=== PATIENT | female | born 1985 | race Caucasian/White ===

== ENCOUNTER 2016-11-01 12:01 | Emergency (ER) | payer OTHER ==
[~2016-11-01] VITALS: Ht 154.9 cm; Wt 77.1 kg
[~2016-11-01 12:01] MED LIST: ARIPIPRAZOLE2 MG PO; FLUOXETINE HCL40 M1 PO; NUVARING VAGIN1 EACH VG
--- NOTE | 2016-11-01 12:57 | ED INFLUENZA/URI COMPLAINT ---
History of Present Illness General Chief Complaint: General Adult Stated Complaint: URI/ELAVATED BP Source: patient, old records Exam Limitations: no limitations Vital Signs & Intake/Output Vital Signs & Intake/Output Vital Signs Date Time Temp Pulse Resp B/P Pulse O2 O2 Flow FiO2 Ox Delivery Rate 11/01 1324 98.1 74 18 132/80 98 Room Air 11/01 1207 96.7 89 16 146/85 99 Room Air Allergies Coded Allergies: NO KNOWN ALLERGIES (06/15/12) Reconcile Medications Aripiprazole 2 MG TABLET 1 TAB PO DAILY MENTAL HEALTH (Reported) Azithromycin 250 MG TABLET 1 DP PO AD uri 2 the first day followed by 1 for days 2-5 Clonazepam 0.5 MG TABLET 1 TAB PO BIDP PRN ANXIETY (Reported) Etonogestrel/Ethinyl Estradiol (Nuvaring Vaginal Ring) 1 EACH VAG.RING 1 EACH VG Q30D CONTROL (Reported) use for 3 weeks, skip for 1 week Fluoxetine HCl 40 MG CAPSULE 1 CAP PO DAILY MENTAL HEALTH (Reported) Trazodone HCl 100 MG TABLET 1 TAB PO QPM SLEEP (Reported) Venlafaxine HCl (Venlafaxine HCl ER) 75 MG CAP.ER.24H 1 CAP PO DAILY MENTAL HEALTH (Reported) Triage Note: 31 Y/O FEMALE C/O "NOT FEELING WELL" X 2 DAYS; STATES SHE WENT TO WALK IN AND HER B/P WAS ELEVATED; ALSO CHECKED IT AT [employer] AND NOTICED IT WAS 146/102. PT STATES SHE HAS HAD URI SYMPTOMS X 2 DAYS WITH COUGH. AFEBRILE. Triage Nurses Notes Reviewed? yes Onset: Gradual Duration: day(s): (2), constant Timing: recent history Severity: mild Severity Numbers: 4 Prior Episodes/Possible Cause: occassional episodes No Modifying Factors: none Associated Symptoms: cough, nasal congestion, nasal drainage : No Patient currently breastfeeds: No HPI: 31-year-old female presents emergency room complaining of a nonproductive cough associated with rhinorrhea congestion for the past 2 days. Patient states that 3 days ago she woke up and vomited 1. She states for the past few days she has not been feeling well. She denies any abdominal pain nausea there's been no further episodes of vomiting no diarrhea. She is not taken anything for her symptoms. She went to an urgent care yesterday and was prescribed Tessalon for her cough. She was informed that her blood pressure was elevated there. When she went in with the prescription filled today she checked it at the grocery store and it remained elevated 146/102. There is no headache vision changes chest pain abdominal pain. No history of hypertension in the past. (DARRICK SOSA) Past History Travel History Traveled to [place] past 21 day No Medical History Any Pertinent Medical History? 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 No (DARRICK SOSA) Review of Systems Review of Systems Constitutional: Reports: see HPI. All Other Systems: Reviewed and Negative Comments Review of systems: See HPI, All other systems negative. Constitutional, no chills no fever, no malaise HEENT: no sore throat congestion, no ear pain Cardiovascular: No chest pain , no palpitation , no orthopnea Skin, no rashes, no change in skin Respiratory: No dyspnea cough no sputum GI: No nausea no vomiting, no diarrhea, : No dysuria No hematuria, Muscle skeletal: No joint pain,, no back pain, no neck pain, Neurologic: No numbness no headache Psych: No stress Heme/endocrine: No bruising no bleeding Immunology: No lymphadenopathy (DARRICK SOSA) Physical Exam Physical Exam General Appearance: well developed/nourished, no apparent distress, alert, awake , comfortable Ears, Nose, Throat: normal ENT inspection, moist mucous membrane, hearing grossly normal, Tympanic normal, nasal congestion Comments: Well-developed well-nourished patient in no apparent distress. Head/Face: Atraumatic, no maxillary/frontal sinus tenderness, no facial swelling Eyes: PERRL, EOMI, no conjunctival injection. No nystagmus Ear:External auditory canal and Tympanic membranes clear, no erythema, no FB. Nose: atraumatic.Normal inspection: No bleeding, no septal hematoma Throat: Moist mucous membranes.Pharynx normal. No pharyngeal erythema/exudate seen. No stridor/drooling or assymetry. No swelling or edema. Neck: Supple, no lymphadenopathy, FROM Back: FROM, Nontender Cardiovascular: Regular rate and rhythms no murmurs rubs or gallops, Respiratory: Chest nontender.There were no bony deformities, no asymmetry. No respiratory distress. Patient speaking in full complete sentences. Breath sounds clear to auscultation bilaterally: NO W/R/R Extremities: full range of motion Neuro: Alert and oriented x3 Skin: Warm & dry;No appreciable rash on exposed skin Psych: Mood affect normal, normal memory normal judgment. Core Measures Severe Sepsis Present: No Septic Shock Present: No (DARRICK SOSA) Progress Differential Diagnosis: influenza, otitis, pneumonia, pharyngitis, sinusitis, HYPERTENSIVE URGENCY VERSUS EMERGENCY Plan of Care: Orders Procedure Date/time Status RAPID VIRAL INFLUENZA A 11/01 1307 Complete Microbiology 11/01 1315 NASOPHARYN: Influenza Virus A & B Rapid Smear - COMP Labs ordered, patient resting in no apparent distress, repeat blood pressure manually 132/80 patient denies any other symptoms at this time. Discussed with patient her. Results E for supportive care and close follow-up with her primary care physician regarding her blood pressure I advised that she continue to check her blood pressures at home if they are persistently elevated to return to ER she was educated on dietary control limiting salt intake, high but she return anytime sooner if any concerns answered all her questions quick for discharge (DARRICK SOSA) Initial ED EKG: none (DARRICK SOSA) Departure Departure Time of Disposition: 1340 Disposition: HOME OR SELF CARE Condition: Stable Clinical Impression Primary Impression: URI (upper respiratory infection) Referrals: LUISITO FERREIRA,DANA Kilgore (PCP/Family) Additional Instructions: AZITHROMYCIN DIRECTED. DISCUSSED CONTINUE TO CHECK YOUR BLOOD PRESSURES AT HOME AND FOLLOW UP WITH YOUR PMD DR JORGE THIS WEEK FOR REPEAT EVAL. LIMIT CAFFEINE AND SALT INTAKE, RETURN IMMEDIATELY IF YOUR BLOOD PRESSURS ARE PERSISTENTLY ELEVATED OR YOU HAVE ANY OTHER CONCERNS. TAKE THE TESSALON PERLES THAT WERE PREVIOUSLY PRESCRIBED TO YOU FOR YOUR COUGH. Departure Forms: Customer Survey General Discharge Information Prescriptions: Current Visit Scripts Azithromycin 1 DP PO AD #6 TAB 2 the first day followed by 1 for days 2-5 (DARRICK SOSA) PA/SPUDDER Co-Sign Statement Statement: ED Attending supervision documentation- [] I saw and evaluated the patient. I have also reviewed all the pertinent lab results and diagnostic results. I agree with the findings and the plan of care as documented in the PA's/SPUDDER's documentation. x I have reviewed the ED Record and agree with the PA's/SPUDDER's documentation. [] Additions or exceptions (if any) to the PAs/SPUDDER's note and plan are summarized below: [] (JIGNESH FERREIRA,ADAM)
[2016-11-01 13:24] VITALS: BP 132/80
[2016-11-01] MEDS ORDERED: VENLAFAXINE HCL75 M1 PO (13:54)
[2016-11-01] MEDS ORDERED: TRAZODONE HCL100 M1 PO (13:55)
[2016-11-01] MEDS ORDERED: CLONAZEPAM0.5 M2 PO (13:55)
[2016-11-01] MEDS ORDERED: AZITHROMYCIN250 M1 PO (13:58)
== END 2016-11-01 14:02 ==
LOC: ERH 12:01
DX: J06.9 Acute upper respiratory infection, unspecified (principal); Z72.0 Tobacco use
CPT/HCPCS: 87804; 87804-59

== ENCOUNTER 2017-10-23 21:01 | Emergency (ER) | payer OTHER ==
[~2017-10-23] VITALS: Ht 154.9 cm; Wt 80.7 kg
[~2017-10-23 21:01] MED LIST changes: +AZITHROMYCIN250 M1 PO; +CLONAZEPAM0.5 M2 PO; +TRAZODONE HCL100 M1 PO; +VENLAFAXINE HCL75 M1 PO
--- NOTE | 2017-10-24 00:01 | ED GI/GU/ABDOMINAL COMPLAINT ---
History of Present Illness General Chief Complaint: Abdominal Pain/Flank Pain Stated Complaint: RIGHT SIDE ABD PAIN AND FLANK PAIN Source: patient Exam Limitations: no limitations Vital Signs & Intake/Output Vital Signs & Intake/Output Vital Signs Date Time Temp Pulse Resp B/P B/P Pulse O2 O2 Flow FiO2 Mean Ox Delivery Rate 10/238 98.3 78 14 126/83 98 Room Air ED Intake and Output 10/24 0000 10/23 1200 Intake Total Output Total Balance Patient 178 lb Weight Weight Reported by Patient Measurement Method Allergies Coded Allergies: NO KNOWN ALLERGIES (06/15/12) Reconcile Medications Aripiprazole 2 MG TABLET 1 TAB PO DAILY MENTAL HEALTH (Reported) Azithromycin 250 MG TABLET 1 DP PO AD uri 2 the first day followed by 1 for days 2-5 Clonazepam 0.5 MG TABLET 1 TAB PO BIDP PRN ANXIETY (Reported) Etonogestrel/Ethinyl Estradiol (Nuvaring Vaginal Ring) 1 EACH VAG.RING 1 EACH VG Q30D CONTROL (Reported) use for 3 weeks, skip for 1 week Fluoxetine HCl 40 MG CAPSULE 1 CAP PO DAILY MENTAL HEALTH (Reported) Omeprazole Magnesium (Prilosec Otc) 20 MG TABLET.DR 1 TAB PO DAILY stomach burning Ondansetron (Zofran Odt) 4 MG TAB.RAPDIS 1 TAB SL TID PRN nausea, vomiting Trazodone HCl 100 MG TABLET 1 TAB PO QPM SLEEP (Reported) Venlafaxine HCl (Venlafaxine HCl ER) 75 MG CAP.ER.24H 1 CAP PO DAILY MENTAL HEALTH (Reported) Triage Note: PT PRESENTS TO THE ER C/O STOMACH PAIN, PT STATES THAT SHE SAW HER PCP ON SUNDAY AND WAS SCHEDULED FOR AN US ON SUNDAY.. PT STATES TODAY IT GOT WORSE AND PAIN MOVED FROM UPPER ABD TO LOWER AND BILATERAL FLANK PAIN.. 6/10 PAIN PER PT LAST BM THIS AM Triage Nurses Notes Reviewed? yes ? n Is pt currently ? No Onset: Gradual Duration: week(s): Timing: recent history Quality/Severity: cramping Location: generalized abdomen Radiation: no radiation Activities at Onset: none Modifying Factors: Worsens With: palpation, vomiting. Associated Symptoms: abdominal pain, nausea/vomiting HPI: 32 yo woman h/o anxiety/depression, presents with diffuse abdominal pain x 4 weeks. She shares, "My doctor thinks I have a gall bladder problem... I have an u/s scheduled on , but today, the pain seemed to get worse.... " She notes pain in the mid epigastru, right and left lower quadrants. She has mild nausea, vomited today at 3pm. She is otherwise well. Past History Travel History Traveled to [place] past 21 day No Medical History Any Pertinent Medical History? 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 No Review of Systems Review of Systems Constitutional: Reports: no symptoms. EENTM: Reports: no symptoms. Respiratory: Reports: no symptoms. Cardiovascular: Reports: no symptoms. GI: Reports: no symptoms. Genitourinary: Reports: no symptoms. Musculoskeletal: Reports: no symptoms. Skin: Reports: no symptoms. Neurological/Psychological: Reports: no symptoms. Hematologic/Endocrine: Reports: no symptoms. Immunologic/Allergic: Reports: no symptoms. All Other Systems: Reviewed and Negative Physical Exam Physical Exam General Appearance: well developed/nourished, mild distress Head: atraumatic, normal appearance Eyes: Bilateral: normal appearance. Ears, Nose, Throat, Mouth: hearing grossly normal, moist mucous membrane Neck: normal inspection, supple Respiratory: normal breath sounds, chest non-tender, no respiratory distress, quiet respiration, lungs clear Cardiovascular: regular rate/rhythm Gastrointestinal: normal bowel sounds, soft, mild mid epigastric tenderness, mild ruq tenderness, without mattson's sign. mild rlq and llq tenderness to palpation. no rebound. no guarding. Back: normal inspection Extremities: normal range of motion Neurologic/Psych: no motor/sensory deficits, awake, alert, oriented x 3 Skin: intact, normal color, warm/dry Core Measures ACS in differential dx? No Sepsis Present: No Sepsis Focused Exam Completed? No Progress Differential Diagnosis: appendicitis, biliary colic, cholecystitis, diverticulitis, gastritis, hepatitis Plan of Care: Orders Procedure Date/time Status URINE 10/24 0000 Complete URINALYSIS 10/24 0000 Complete LIPASE 10/23 232 Complete HEPATIC FUNCTION PANEL 10/23 232 Complete HUMAN BETA HCG SCREEN 022319 Complete CBC WITHOUT DIFFERENTIAL 10/23 2319 Complete BASIC METABOLIC PANEL 10/23 2319 Complete AMYLASE 10/23 2319 Complete Laboratory Tests 10/24/17 0007: Anion Gap 13, Estimated GFR > 60, BUN/Creatinine Ratio 15.0, Glucose 89, Calcium 9.3, Total Bilirubin 0.2, Direct Bilirubin 0.2, AST 27, ALT 21, Alkaline Phosphatase 59, Total Protein 7.4, Albumin 4.4, Amylase 59, Lipase 155, Total Beta HCG NEGATIVE, CBC w Diff NO MAN DIFF REQ, RBC 4.76, MCV 86.3, MCH 29.6, MCHC 34.3, RDW 12.8, MPV 8.3, Gran % 62.7, Lymphocytes % 29.5, Monocytes % 5.8, Eosinophils % 1.7, Basophils % 0.3, Absolute Granulocytes 6.5, Absolute Lymphocytes 3.1, Absolute Monocytes 0.6, Absolute Eosinophils 0.2, Absolute Basophils 0, Urine Color YEL, Urine Clarity CLEAR, Urine pH 7.0, Ur Specific [place] 1.020, Urine Protein NEG, Urine Ketones NEG, Urine Nitrite NEG, Urine Bilirubin NEG, Urine Urobilinogen 0.2, Ur Leukocyte Esterase NEG, Ur Microscopic EXAM NOT REQUIRED, Urine Hemoglobin NEG, Urine Glucose NEG, Urine Test NEGATIVE Diagnostic Imaging: Viewed by Me: CT Scan. Discussed w/RAD: CT Scan. Radiology Impression: PATIENT: CHRIS APONTE PRESENT AGE: 32 PATIENT ACCOUNT NO: [id number] : 86 LOCATION: [facility] ORDERING PHYSICIAN: Jimmie Jansen MD SERVICE DATE: 10/24/17 EXAM TYPE: CAT - CT ABD & PELVIS W/O IV CONTRAS EXAMINATION: CT ABDOMEN AND PELVIS WITHOUT CONTRAST CLINICAL INFORMATION: Midepigastric and right upper quadrant pain. COMPARISON: None TECHNIQUE: Multidetector volumetric imaging was performed from the superior aspect of the liver through the pubic symphysis. Sagittal and coronal reformatted images were obtained on the technologist's workstation. DLP: 355 mGy-cm FINDINGS: LUNG BASES: The visualized lung bases are unremarkable. LIVER, GALLBLADDER, AND BILIARY TREE: The liver is normal in size, shape, and attenuation. No focal hepatic lesion or biliary ductal dilatation is present. The gallbladder is unremarkable with no evidence of radiopaque gallstones, gallbladder wall thickening, or obvious pericholecystic inflammatory changes. PANCREAS: Unremarkable. SPLEEN: Unremarkable. ADRENAL GLANDS: Unremarkable. KIDNEYS AND URETERS: The kidneys are normal in size, shape, and attenuation. No hydronephrosis, hydroureter, or calculi seen. No perinephric stranding. BLADDER: Unremarkable. GASTROINTESTINAL TRACT: There is equivocal wall thickening of the gastric body and fundus. The distal stomach is unremarkable. The small bowel is normal in caliber. No obstruction. Normal appendix. No colonic wall thickening or inflammatory changes. No free air or free fluid. ABDOMINAL WALL: No significant hernia is appreciated. LYMPH NODES: Normal. VASCULAR: Unremarkable. PELVIC VISCERA: The uterus and adnexa are unremarkable. OSSEOUS STRUCTURES: No acute or suspicious osseous abnormality. IMPRESSION: There is the appearance of possible wall thickening of the gastric body and fundus, although this appearance could be secondary to decompression of the stomach. Correlate for gastritis. Otherwise, unremarkable appearance of the abdomen and pelvis. DICTATED BY: King Love MD DATE/TIME DICTATED:10/24/17246 TECHNICAL COORDINATOR:ALEISHA DATE/TIME TRANSCRIBED:10/24/17246 CONFIDENTIAL, DO NOT COPY WITHOUT APPROPRIATE AUTHORIZATION. <Electronically signed in Other Vendor System> SIGNED BY: King Love MD 10/24/17 025 Initial ED EKG: none Departure Departure Disposition: HOME OR SELF CARE Condition: Stable Clinical Impression Primary Impression: Abdominal pain Referrals: Vu FERREIRA,Vaibhav Kilgore (PCP/Family) Departure Forms: Customer Survey General Discharge Information Prescriptions: Current Visit Scripts Omeprazole Magnesium (Prilosec Otc) 1 TAB PO DAILY #30 TAB Ondansetron (Zofran Odt) 1 TAB SL TID PRN nausea, vomiting #10 TAB Ref 1 Comments 10/24/17, 3:19am... pt comfortable in ED... ct scan suggestive of gastritis, otherwise benign... pt safe for discharge... pt has u/s scheduled for tomorrow and will follow up with her PMD... gave rx for prilosec
[2017-10-24 00:23] LABS: ABSOLUTE BASOPHIL COUNT 0 /CUMM (0.0-0.2); ABSOLUTE EOSINOPHIL COUNT 0.2 /CUMM (0.0-0.7); ABSOLUTE GRANULOCYTE CT 6.5 /CUMM (1.4-6.5); ABSOLUTE LYMPH COUNT 3.1 /CUMM (1.2-3.4); ABSOLUTE MONOCYTE COUNT 0.6 /CUMM (0.10-0.60); BASOPHIL % 0.3 % (0.0-2.0); EOSINOPHIL % 1.7 % (0-5); GRANULOCYTE % 62.7 % (42.2-75.2); HEMATOCRIT 41.1 % (37-47); MEAN CORPUSCULAR HGB 29.6 PG (27.0-31.0); MEAN CORPUSCULAR HGB CONC 34.3 G/DL (33.0-37.0); MEAN CORPUSCULAR VOLUME 86.3 FL (81.0-99.0); MEAN PLATELET VOLUME 8.3 FL (7.4-10.4); PLATELET COUNT 311 /CUMM (130-400); RBC DISTRIBUTION WIDTH 12.8 % (11.5-14.5); RED BLOOD CELL CT 4.76 /CUMM (4.20-5.40); WHITE BLOOD CELL COUNT 10.4 /CUMM (4.8-10.8)
[2017-10-24] MEDS ORDERED: ZOFRAN ODT4 M1 SL (00:33)
[2017-10-24] MEDS ORDERED: PRILOSEC OTC20 M1 PO (00:33)
--- NOTE | 2017-10-24 02:52 | CT SCAN REPORT ---
EXAMINATION: CT ABDOMEN AND PELVIS WITHOUT CONTRAST CLINICAL INFORMATION: Midepigastric and right upper quadrant pain. COMPARISON: None TECHNIQUE: Multidetector volumetric imaging was performed from the superior aspect of the liver through the pubic symphysis. Sagittal and coronal reformatted images were obtained on the technologist's workstation. DLP: 355 mGy-cm FINDINGS: LUNG BASES: The visualized lung bases are unremarkable. LIVER, GALLBLADDER, AND BILIARY TREE: The liver is normal in size, shape, and attenuation. No focal hepatic lesion or biliary ductal dilatation is present. The gallbladder is unremarkable with no evidence of radiopaque gallstones, gallbladder wall thickening, or obvious pericholecystic inflammatory changes. PANCREAS: Unremarkable. SPLEEN: Unremarkable. ADRENAL GLANDS: Unremarkable. KIDNEYS AND URETERS: The kidneys are normal in size, shape, and attenuation. No hydronephrosis, hydroureter, or calculi seen. No perinephric stranding. BLADDER: Unremarkable. GASTROINTESTINAL TRACT: There is equivocal wall thickening of the gastric body and fundus. The distal stomach is unremarkable. The small bowel is normal in caliber. No obstruction. Normal appendix. No colonic wall thickening or inflammatory changes. No free air or free fluid. ABDOMINAL WALL: No significant hernia is appreciated. LYMPH NODES: Normal. VASCULAR: Unremarkable. PELVIC VISCERA: The uterus and adnexa are unremarkable. OSSEOUS STRUCTURES: No acute or suspicious osseous abnormality. IMPRESSION: There is the appearance of possible wall thickening of the gastric body and fundus, although this appearance could be secondary to decompression of the stomach. Correlate for gastritis. Otherwise, unremarkable appearance of the abdomen and pelvis.
[2017-10-24 03:10] VITALS: BP 122/80
== END 2017-10-24 03:21 ==
LOC: ERH 21:01
PROVIDERS: Pediatrics
DX: R10.84 Generalized abdominal pain (principal)
CPT/HCPCS: 74176; 81003; 81025; 96372; J1885; J3101